=== PATIENT | male | born 1970 ===

== ENCOUNTER 2020-12-06 16:03 | Inpatient (IN) | payer OTHER ==
[~2020-12-06] VITALS: Ht 177.8 cm; Wt 101.1 kg
[2020-12-06] MEDS ORDERED: ASPirin 81 mg TAB PO ONE (16:15)
[2020-12-06] MEDS ORDERED: ASPirin 81 mg TAB ONE (17:30)
[2020-12-06 19:18] LABS: Basophils # (auto) 0 10 ^3/uL (0-0.2); Basophils % (auto) 0.4 % (0.0-2.0); Eosinophils # (auto) 0.1 10 ^3/uL (0-0.8); Eosinophils % (auto) 0.6 % (0.0-7.0); Hematocrit 42.9 % (41.0-53.0); Hemoglobin 15.2 g/dL (13.5-17.5); Lymphocytes # (auto) 3.1 10 ^3/uL (0.4-5.4); Lymphocytes % (auto) 31.4 % (10.0-50.0); Mean Corpuscular Hemoglobin 32.2 pg (28.0-32.0); Mean Corpuscular Hgb Conc. 35.5 g/dL (32.0-36.0); Mean Corpuscular Volume 90.6 fL (80.0-100.0); Monocytes # (auto) 0.7 10 ^3/uL (0-1.3); Monocytes % (auto) 7.5 % (0.0-12.0); Neutrophils # (auto) 5.9 10 ^3/uL (1.6-8.6); Neutrophils % (auto) 60.1 % (37.0-80.0); Nucleated Red Blood Cells % 0.1 %; Red Blood Cells 4.73 10^6/uL (4.5-5.90); Red Cell Distribution Width 12.7 % (11.8-14.3); White Blood Cell 9.8 10^3/uL (4.4-10.8)
[2020-12-06 19:37] LABS: Albumin 3.8 g/dL (3.4-5.0); Calcium 8.5 mg/dL (8.5-10.1); Magnesium 2.5 mg/dL (1.6-2.6); Potassium 3.9 mmol/L (3.5-5.1)
[2020-12-06 19:42] LABS: BUN/Creatinine Ratio 19.5; Bilirubin, Total 0.4 mg/dL (0.2-1.0); Total Protein 7.4 g/dL (6.4-8.2)
[2020-12-06] MEDS ORDERED: MORPHINE SULFATE 4 MG/ML SYR/VIAL IV ONE (20:00)
[2020-12-06] MEDS ORDERED: ONDANSETRON HCL 4 MG/2 ML VIAL IV ONE (20:00)
[2020-12-06] MEDS ORDERED: HEPARIN 1,000 UNITS/ml 1ML VIAL IV ONE (20:00)
[2020-12-06] MEDS ORDERED: MORPHINE SULFATE INJECTION 2 MG/ML SYRG IV PRN (20:30)
[2020-12-06] MEDS ORDERED: NITROGLYCERIN 0.4 MG SL TAB SL PRN (20:30)
[2020-12-06] MEDS ORDERED: CLOPIDOGREL 300 MG TAB PO ONE (20:45)
[2020-12-06] MEDS ORDERED: HEPARIN SODIUM (PORCINE) 5000 UNITS/ML 1ML VIAL ONE (21:16)
[2020-12-06] MEDS: SOD CHL 0.45% 1,000 ML IV SCH (21:44)
[2020-12-06 22:00] VITALS: BP 119/75
[2020-12-06] MEDS: METOPROLOL TARTRATE 25 MG TAB PO SCH (22:00)
[2020-12-06 23:00] VITALS: BP 119/75
[2020-12-06] MEDS: ENOXAPARIN SOD 100 MG/1 ML SYRINGE SC SCH (23:02)
[2020-12-07 02:30] LABS: Urine Bacteria NONE SEEN /hpf (None Seen); Urine Blood Negative /uL (Negative); Urine Mucus FEW (None Seen); Urine Specific Gravity 1.007 (1.001-1.035); Urine WBC None Seen /hpf (0 - 3)
[2020-12-07 05:00] VITALS: BP 112/74
[2020-12-07 05:33] LABS: INR 1.01 (0.9-1.15)
[2020-12-07 09:00] VITALS: BP 128/72
[2020-12-07] MEDS: ENOXAPARIN SOD 100 MG/1 ML SYRINGE SC SCH (10:00)
[2020-12-07] MEDS: METOPROLOL TARTRATE 25 MG TAB PO SCH ×2 (10:26→20:08)
[2020-12-07] MEDS: ATORVASTATIN 20 MG TAB PO SCH (10:26)
[2020-12-07] MEDS: SOD CHL 0.45% 1,000 ML IV SCH ×2 (10:26→22:55)
[2020-12-07] MEDS: LISINOPRIL 5 MG TAB PO SCH (10:27)
[2020-12-07 11:15] LABS: Basophils # (auto) 0 10 ^3/uL (0-0.2); Basophils % (auto) 0.7 % (0.0-2.0); Eosinophils # (auto) 0.1 10 ^3/uL (0-0.8); Eosinophils % (auto) 1.5 % (0.0-7.0); Hematocrit 43.2 % (41.0-53.0); Lymphocytes # (auto) 3.7 10 ^3/uL (0.4-5.4); Lymphocytes % (auto) 51.5 % (10.0-50.0); Mean Corpuscular Hemoglobin 31.7 pg (28.0-32.0); Mean Corpuscular Hgb Conc. 34.8 g/dL (32.0-36.0); Mean Corpuscular Volume 91.1 fL (80.0-100.0); Monocytes # (auto) 0.6 10 ^3/uL (0-1.3); Neutrophils # (auto) 2.7 10 ^3/uL (1.6-8.6); Neutrophils % (auto) 38.3 % (37.0-80.0); Nucleated Red Blood Cells % 0.2 %; Red Blood Cells 4.74 10^6/uL (4.5-5.90); Red Cell Distribution Width 12.9 % (11.8-14.3); White Blood Cell 7.1 10^3/uL (4.4-10.8)
[2020-12-07 11:30] LABS: Calcium 8.4 mg/dL (8.5-10.1); Potassium 3.9 mmol/L (3.5-5.1)
[2020-12-07 11:38] LABS: Albumin 3.5 g/dL (3.4-5.0); BUN/Creatinine Ratio 16.7; Bilirubin, Total 0.7 mg/dL (0.2-1.0); Total Protein 6.7 g/dL (6.4-8.2)
[2020-12-07] MEDS ORDERED: IODIXANOL 320MG/ML 100ML BTL IV ONE (14:11)
[2020-12-07] MEDS ORDERED: LIDOCAINE 2%HCL (LOCAL ANESTH.) INJ 20ML MDV ONE (14:11)
[2020-12-07 14:14] LABS: Cholesterol 241 mg/dL (< 200); HDL Cholesterol 38 mg/dL (40-59); LDL Cholesterol 175 mg/dL (< 100); Triglycerides 261 mg/dL (< 150)
[2020-12-07] MEDS ORDERED: HEPARIN SODIUM (PORCINE) 5000 UNITS/ML 1ML VIAL ONE (14:24)
[2020-12-07] MEDS ORDERED: ANGIOMAX 250 MG VIAL IV ONE (14:24)
[2020-12-07] MEDS ORDERED: VERAPAMIL 2.5MG/ML INJ 2ML VIAL IV ONE (14:24)
[2020-12-07] MEDS ORDERED: MIDAZOLAM HCL 2MG/2ML 2ml VIAL (1mg/ml) ONE (14:25)
[2020-12-07] MEDS ORDERED: SODIUM CHL 0.9% 50 ML ONE (14:25)
[2020-12-07] MEDS ORDERED: fentaNYL CITRATE 100 MCG/2 ML VL ONE (14:25)
[2020-12-07] MEDS ORDERED: CLOPIDOGREL 300 MG TAB ONE (16:02)
[2020-12-07] MEDS ORDERED: ASPirin 325 MG TAB ONE (16:02)
[2020-12-07] MEDS ORDERED: ASPirin 81 mg TAB ONE (16:05)
[2020-12-07] MEDS ORDERED: CLOPIDOGREL BISULFATE 75 MG TAB ONE (16:05)
[2020-12-07] MEDS ORDERED: ASPirin 81 mg TAB PO SCH (16:39)
[2020-12-07] MEDS ORDERED: CLOPIDOGREL BISULFATE 75 MG TAB PO SCH (17:00)
[2020-12-07 17:30] VITALS: BP 112/74
[2020-12-07 22:00] VITALS: BP 128/100
[2020-12-08 05:00] VITALS: BP 113/71
[2020-12-08 06:14] LABS: Basophils # (auto) 0 10 ^3/uL (0-0.2); Basophils % (auto) 0.3 % (0.0-2.0); Eosinophils # (auto) 0.1 10 ^3/uL (0-0.8); Eosinophils % (auto) 1.1 % (0.0-7.0); Hematocrit 43.3 % (41.0-53.0); Hemoglobin 15.2 g/dL (13.5-17.5); Lymphocytes # (auto) 2.9 10 ^3/uL (0.4-5.4); Lymphocytes % (auto) 30.7 % (10.0-50.0); Mean Corpuscular Hemoglobin 31.9 pg (28.0-32.0); Mean Corpuscular Hgb Conc. 35.2 g/dL (32.0-36.0); Mean Corpuscular Volume 90.8 fL (80.0-100.0); Monocytes # (auto) 0.7 10 ^3/uL (0-1.3); Monocytes % (auto) 7.6 % (0.0-12.0); Neutrophils # (auto) 5.7 10 ^3/uL (1.6-8.6); Neutrophils % (auto) 60.3 % (37.0-80.0); Nucleated Red Blood Cells % 0.3 %; Red Blood Cells 4.77 10^6/uL (4.5-5.90); Red Cell Distribution Width 12.9 % (11.8-14.3); White Blood Cell 9.4 10^3/uL (4.4-10.8)
[2020-12-08 06:30] LABS: Calcium 8.7 mg/dL (8.5-10.1); Potassium 4.6 mmol/L (3.5-5.1)
[2020-12-08 06:35] LABS: BUN/Creatinine Ratio 16.7
[2020-12-08 08:58] VITALS: BP 112/64
[2020-12-08] MEDS: METOPROLOL TARTRATE 25 MG TAB PO SCH ×2 (10:00→22:00)
[2020-12-08] MEDS: ASPirin 81 mg TAB PO SCH (10:13)
[2020-12-08] MEDS: ATORVASTATIN 20 MG TAB PO SCH (10:14)
[2020-12-08] MEDS: LISINOPRIL 5 MG TAB PO SCH (10:14)
[2020-12-08] MEDS: CLOPIDOGREL BISULFATE 75 MG TAB PO SCH (10:14)
[2020-12-08 12:34] VITALS: BP 99/59
[2020-12-08] MEDS ORDERED: FUROSEMIDE 40 MG/4 ML VIAL IV ONE (15:30)
[2020-12-08 17:00] VITALS: BP 114/73
[2020-12-08 22:00] VITALS: BP 95/71
[2020-12-09 05:00] VITALS: BP 111/70
[2020-12-09] MEDS ORDERED: ERGOCALCIFEROL 50,000 UNIT(1.25MG) CAP PO SCH (08:30)
[2020-12-09] MEDS ORDERED: ATOR40TA52 PO (08:32)
[2020-12-09] MEDS ORDERED: MET25T PO (08:32)
[2020-12-09] MEDS ORDERED: NITR0.4S29 SL (08:32)
[2020-12-09] MEDS ORDERED: CLOP75TA28 PO (08:32)
[2020-12-09] MEDS ORDERED: LISI-275 PO (08:32)
[2020-12-09] MEDS ORDERED: ASPI1CHW15 PO (08:32)
[2020-12-09] MEDS ORDERED: ERGO1CAP23 PO (08:33)
[2020-12-09] MEDS: ASPirin 81 mg TAB PO SCH (08:41)
[2020-12-09] MEDS: CLOPIDOGREL BISULFATE 75 MG TAB PO SCH (08:41)
[2020-12-09] MEDS: ATORVASTATIN 20 MG TAB PO SCH (08:41)
[2020-12-09 09:00] VITALS: BP 110/74
[2020-12-09] MEDS: LISINOPRIL 5 MG TAB PO SCH (10:00)
[2020-12-09] MEDS: METOPROLOL TARTRATE 25 MG TAB PO SCH (10:00)
== END 2020-12-09 11:20 | disposition home or self-care (01) | DRG 981 ==
LOC: ER 16:11 → TELE 20:22 → TELE-WESTW 21:58 → TELE-EAST 12-07 17:10
PROVIDERS: ADMIT Internal Medicine; ATTEND Internal Medicine
PROC: 4A023N7 Measurement of Cardiac Sampling and Pressure, Left Heart, Percutaneous Approach (ICD-10-PCS; principal; 2020-12-07)
PROC: 027034Z Dilation of Coronary Artery, One Artery with Drug-eluting Intraluminal Device, Percutaneous Approach (ICD-10-PCS; 2020-12-07)
PROC: B211YZZ Fluoroscopy of Multiple Coronary Arteries using Other Contrast (ICD-10-PCS; 2020-12-07)
PROC: B215YZZ Fluoroscopy of Left Heart using Other Contrast (ICD-10-PCS; 2020-12-07)
DX: U07.1 COVID-19 (principal); I21.4 Non-ST elevation (NSTEMI) myocardial infarction; E55.9 Vitamin D deficiency, unspecified; E66.9 Obesity, unspecified; E78.5 Hyperlipidemia, unspecified; I25.10 Atherosclerotic heart disease of native coronary artery without angina pectoris; Z20.822 Contact with and (suspected) exposure to COVID-19; Z83.3 Family history of diabetes mellitus; Z82.49 Family history of ischemic heart disease and other diseases of the circulatory system; Z82.0 Family history of epilepsy and other diseases of the nervous system; Z98.61 Coronary angioplasty status; Z80.0 Family history of malignant neoplasm of digestive organs; Z68.31 Body mass index [BMI] 31.0-31.9, adult
CPT/HCPCS: 36415; 71046; 76705; 80048; 80053; 80061; 81001; 82306; 83036; 83735; 83880; 84443; 84484; 85025; 85379; 85610; 85730; 86850; 86900; 86901; 87426; 92928; 93005; 93306; 93458; 96361; 96374; 96375; 99152; 99153; C1874; C1887; G0378; J2250; J2405; Q9967

== ENCOUNTER 2021-05-20 20:01 | Emergency (ER) | payer OTHER ==
[~2021-05-20] VITALS: Ht 170.2 cm; Wt 90.7 kg
[~2021-05-20 20:01] MED LIST: ASPI1CHW15 PO; ATOR40TA52 PO; CLOP75TA28 PO; ERGO1CAP23 PO; NITR0.4S29 SL
[2021-05-20] MEDS ORDERED: OXYMETAZOLINE HCL 0.05 % NASAL SPRAY 15ML EACHNOSTRI ONE (20:15)
[2021-05-20 20:37] LABS: Basophils # (auto) 0 10 ^3/uL (0-0.2); Basophils % (auto) 0.5 % (0.0-2.0); Eosinophils # (auto) 0.1 10 ^3/uL (0-0.8); Eosinophils % (auto) 1.1 % (0.0-7.0); Hematocrit 42.5 % (41.0-53.0); Hemoglobin 14.1 g/dL (13.5-17.5); Lymphocytes # (auto) 4.7 10 ^3/uL (0.4-5.4); Lymphocytes % (auto) 43.7 % (10.0-50.0); Mean Corpuscular Hgb Conc. 33.1 g/dL (32.0-36.0); Mean Corpuscular Volume 90.5 fL (80.0-100.0); Monocytes # (auto) 0.8 10 ^3/uL (0-1.3); Monocytes % (auto) 7.5 % (0.0-12.0); Neutrophils % (auto) 47.2 % (37.0-80.0); Nucleated Red Blood Cells % 0.1 %; Red Blood Cells 4.69 10^6/uL (4.5-5.90); Red Cell Distribution Width 13.2 % (11.8-14.3); White Blood Cell 10.7 10^3/uL (4.4-10.8)
[2021-05-20 20:51] LABS: Albumin 3.7 g/dL (3.4-5.0); BUN/Creatinine Ratio 22.4; Calcium 8.7 mg/dL (8.5-10.1); Potassium 3.6 mmol/L (3.5-5.1)
[2021-05-20 20:54] LABS: Bilirubin, Total 0.4 mg/dL (0.2-1.0); Total Protein 7.4 g/dL (6.4-8.2)
[2021-05-20] MEDS ORDERED: ONDANSETRON HCL 4 MG/2 ML VIAL IV ONE (21:00)
[2021-05-20] MEDS ORDERED: SODIUM CHLORIDE 0.9% 1,000 ML IV ONE (21:15)
[2021-05-20 23:13] LABS: INR 1.08 (0.9-1.15)
[2021-05-21 00:20] VITALS: BP 106/61
== END 2021-05-21 02:36 | disposition home or self-care (01) ==
LOC: ER 20:13
DX: R04.0 Epistaxis (principal); M54.2 Cervicalgia; R51.9 Headache, unspecified; E78.5 Hyperlipidemia, unspecified; Z86.73 Personal history of transient ischemic attack (TIA), and cerebral infarction without residual deficits; W22.8XXA Striking against or struck by other objects, initial encounter; Y93.89 Activity, other specified; Y92.89 Other specified places as the place of occurrence of the external cause; Y99.8 Other external cause status
CPT/HCPCS: 36415; 70450; 70486; 71045; 80053; 83880; 84484; 85025; 85610; 93005; 96361; 96374; 99285; J2405; J7030